=== PATIENT | female | born 1995 | race Caucasian/White ===

== ENCOUNTER 2023-09-20 10:24 | Outpatient (RCR) | payer BC, SELFPAY ==
[2023-07-03 11:47] VITALS: BP 121/68; PULSE 85
[2023-08-02 11:16] VITALS: BP 119/70; PULSE 86
[2023-08-09 12:05] VITALS: BP 126/79; PULSE 77
[2023-08-16 11:28] VITALS: BP 131/81; PULSE 70
[2023-08-23 12:12] VITALS: BP 123/81; PULSE 83
[2023-08-30 12:55] VITALS: BP 122/68; PULSE 75
[2023-09-06 11:03] VITALS: BP 131/57; PULSE 60
[2023-09-13 11:20] VITALS: BP 111/83; PULSE 86
[2023-09-20 11:02] VITALS: BP 132/74; PULSE 69
== END 2023-10-01 23:59 | disposition home or self-care (01) ==
LOC: ANHOBOP 10:24
PROVIDERS: Visit Provider Obstetrics & Gynecology
DX: O36.8130 Decreased fetal movements, third trimester, not applicable or unspecified (principal); Z3A.28 28 weeks gestation of pregnancy; Z3A.32 32 weeks gestation of pregnancy; Z3A.33 33 weeks gestation of pregnancy; Z3A.34 34 weeks gestation of pregnancy; Z3A.36 36 weeks gestation of pregnancy; Z3A.37 37 weeks gestation of pregnancy; Z3A.38 38 weeks gestation of pregnancy; Z3A.39 39 weeks gestation of pregnancy
CPT/HCPCS: 59025; J2250; J3010

== ENCOUNTER 2023-09-25 16:41 | Inpatient (IN) | payer BC, SELFPAY ==
[2023-09-25] VITALS (16 sets, daily range): BP systolic 120–146; BP diastolic 68–102; PULSE 66–80; TEMP 36.2–36.3; BMI 46.3
[2023-09-25 17:23] LABS: Basophils Percent Auto 0.4 % (0.2-1.2); Eosinophils Absolute Auto 0.1 K/mm3 (0-0.3); Eosinophils Percent Auto 0.7 % (0-4.4); Hematocrit 36.8 % (37.0-47.0); Hemoglobin 12.2 g/dL (12.0-15.0); Immature Granulocyte Absolute 0.12 K/mm3 (0.00-0.031); Immature Granulocyte Percent A 1.1 % (0-0.5); Lymphocytes Absolute Auto 2.12 K/mm3 (0.9-3.2); Lymphocytes Percent Auto 20.3 % (18.3-44.2); Mean Corpuscular HGB Conc 33.2 g/dl (32-36); Mean Corpuscular Hemoglobin 29.8 pg (26-34); Mean Corpuscular Volume 89.8 fl (80-100); Mean Platelet Volume 10.3 fl (7.4-10.4); Monocytes Absolute Auto 0.7 K/mm3 (0.1-0.6); Monocytes Percent Auto 7.1 % (2.6-8.5); Neutrophils Absolute Auto 7.4 K/mm3 (1.3-6.7); Neutrophils Percent Auto 70.4 % (45.5-73.1); Platelet Count Result 275 k/mm3 (150-375); Red Cell Distribution Width 13.6 % (11.5-14.5); White Blood Count 10.5 K/mm3 (4.5-10.0)
[2023-09-25] MEDS: DINOPROSTONE 10 MG VAG INSERT VAGINAL (17:25)
--- NOTE | 2023-09-25 17:47 | LDADM ---
This patient, Barbara Nguyen, was admitted to Labor/Delivery/Recovery 108 on 09/25/23 at 16:41. Plans for labor, pain management and were discussed with patient. Patient/family oriented to hospital policies and general routines including ID bracelet, bed and alarms, visiting hours, pain management, procedures, bathroom and other care routines, personal items, smoking policy, room service/diet and guest tray routines, infant security routines, and visiting hours. Patient/Family are encouraged to report perceived risks to care and to ask questions if they do not understand what they are told or what they should do. See OBIX for further documentation.
[2023-09-26] VITALS (258 sets, daily range): BP systolic 90–165; BP diastolic 47–118; PULSE 53–137; TEMP 35.9–37; O2SAT 78–100
--- NOTE | 2023-09-26 07:15 | WPDHPUPDATE1 ---
History and Physical Update Update Date/Time: 09/26/23 07:15 28 yo G1 who presents at 40w1d who presents or IOL. History and Physical has been reviewed, including an updated exam of the patient. There are NO changes in the patient's condition. Risks, benefits, and alternatives have been discussed and questions answered. Patient agrees to proceed with procedure. admit to L&D routine admission orders GBS neg plan for Cervidil IOL continuous EFM
[2023-09-26] MEDS: LACTATED RINGERS 1,000 ML 125 ML IV CONT ×3 (07:26→16:11)
[2023-09-26] MEDS: OXYTOCIN 30 UNITS/NS 500 ML 30 UNITS/500 ML BAG IV CONT (07:27)
--- NOTE | 2023-09-26 13:16 | WPDANESEPPF ---
Anes - Initial Pre Proc Eval Procedure: Labor Epidural Date/Time: 09/26/23 13:16 Surgeon: Mickey Mcelroy MD Pre Op Diagnosis: Labor pain Pre Op Diagnosis: Induction of Labor Patient Data Age: 28 Gender: F Height: 1.6 m Weight: 118.8 kg Last Vital Signs Temp 36.4 C 09/26/23 12:30 Pulse 74 09/26/23 13:01 BP 141/87 H 09/26/23 13:01 O2 Del Method Room Air 09/25/23 17:45 Allergies Allergy/AdvReac Type Severity Reaction Status Date / Time Sulfa (Sulfonamide Allergy Mild Rash Verified 09/20/23 09:10 Antibiotics) sumatriptan Allergy Mild Swelling Verified 09/20/23 09:10 Home Medications Medication Instructions Recorded Confirmed Type vitamins-iron fumarate 65 1 tablet PO DAILY 03/15/23 09/25/23 History mg iron-folic acid 1 mg tablet aspirin 81 mg tablet,delayed 81 mg PO DAILY 08/16/23 09/25/23 History release (Adult Low Dose Aspirin) Laboratory Tests 09/25/23 09/25/23 17:11 17:12 WBC 10.5 H K/mm3 (4.5-10.0) RBC 4.10 L M/mm3 (4.2-5.4) Hgb 12.2 g/dL (12.0-15.0) Hct 36.8 L % (37.0-47.0) MCV 89.8 fl (80-100) MCH 29.8 pg (26-34) MCHC 33.2 g/dl (32-36) RDW 13.6 % (11.5-14.5) Plt Count 275 k/mm3 (150-375) MPV 10.3 fl (7.4-10.4) Immature Gran % (Auto) 1.1 H % (0-0.5) Neut % (Auto) 70.4 % (45.5-73.1) Lymph % (Auto) 20.3 % (18.3-44.2) Harris % (Auto) 7.1 % (2.6-8.5) Eos % (Auto) 0.7 % (0-4.4) Baso % (Auto) 0.4 % (0.2-1.2) Lymph # (Auto) 2.12 K/mm3 (0.9-3.2) Harris # (Auto) 0.7 H K/mm3 (0.1-0.6) Eos # (Auto) 0.1 K/mm3 (0-0.3) Baso # (Auto) 0.0 K/mm3 (0.0-0.1) Abs Immat Gran (auto) 0.12 H K/mm3 (0.00-0.031) Absolute Neuts (auto) 7.4 H K/mm3 (1.3-6.7) Absolute Nucleated RBC 0.0 K/mm3 (0.0-0.012) Nucleated RBC % 0.0 % (0.0-0.2) RPR Pending Blood Type O Positive Antibody Screen Negative : gestational age (MELY 09/25/23) Patient hx anesthesia problems: none Family hx anesthesia problems: none Results Review: All pre-operative results and documents have been reviewed as part of the pre-operative evaluation. [facility] Past Medical History Medical History Suppression of menstruation Surgical History Surgical History H/O eye surgery History of tonsillectomy Family History Family History Mother Cerebrovascular accident Hypertension Bipolar disorder Father Cerebrovascular accident Hypertension Other Breast cancer paternal aunt Lung cancer paternal aunt Social History Social History Smoking packs per day: 0.5 Smoking cigarettes per day: 10.0 Years smoked: 2 Smoking pack-years: 1.00 Smoking status: Former smoker Tobacco type: cigarettes Second hand tobacco smoke exposure: No Alcohol intake: former Alcohol use details: 4 per month Substance use: never Substance use type: marijuana Last use: 01/28/2023 Do You Feel Safe in your Home?: Yes Lack of Transportation: No Lack of Food: Never True Current Housing: I Have Housing Concerned About Future Housing: No Difficulty Paying Gas/Electric Bills: No Difficulty Paying for Meds: No Currently Unemployed: No Education: High School Diploma/GED Difficulty w/ Childcare or Family Care: No Living arrangements: other Additional living arrangements comments: Occupation/Education: occupation Additional occupation/education comments: demolitionist Gender identity (if verbalized by the patient): Female Sexual Orientation (if Verbalized by the Patient): Bisexual Spiritual care co
--- NOTE | 2023-09-26 16:31 | PM.OBPNLAB ---
Pain Control Date/time seen: 09/26/23 16:31 Pain control: tolerating well and epidural Pelvic Exam Dilation (cm): 6 Effacement (%): 80 station: -3 Amniotic membrane status: Intact Contractions Monitor mode: External Contraction pattern: Regular Status status: Category l Assessment and Plan Assessment: induction ongoing Comments: AROM for clear fluid. IUPC placed. Continue to monitor
[2023-09-27] VITALS (96 sets, daily range): BP systolic 99–144; BP diastolic 64–92; PULSE 82–177; RESP 18–27; TEMP 36.4–38.1; O2SAT 84–100
[2023-09-27] MEDS: LACTATED RINGERS 1,000 ML 125 ML IV CONT (00:04)
[2023-09-27] MEDS: ceFAZolin 2 GM/D5W 50 ML 2 GM/50 ML BAG IVPB (02:56)
--- NOTE | 2023-09-27 03:23 | WPDANESEPPF ---
Anes - Initial Pre Proc Eval Procedure: Operation Date: 09/27/23 03:15 Proposed Procedures p Section(Not Applicable) - Mickey Mcelroy MD Date/Time: 09/27/23 03:23 Surgeon: Mickey Mcelroy MD Pre Op Diagnosis: Induction of Labor Patient Data Age: 28 Gender: F Height: 1.6 m Weight: 118.8 kg Last Vital Signs Temp 38.1 C H 09/27/23 02:26 Pulse 98 09/27/23 03:16 BP 118/64 09/27/23 03:16 Pulse Ox 100 09/27/23 03:18 O2 Del Method Room Air 09/25/23 17:45 Allergies Allergy/AdvReac Type Severity Reaction Status Date / Time Sulfa (Sulfonamide Allergy Mild Rash Verified 09/20/23 09:10 Antibiotics) sumatriptan Allergy Mild Swelling Verified 09/20/23 09:10 Home Medications Medication Instructions Recorded Confirmed Type vitamins-iron fumarate 65 1 tablet PO DAILY 03/15/23 09/25/23 History mg iron-folic acid 1 mg tablet aspirin 81 mg tablet,delayed 81 mg PO DAILY 08/16/23 09/25/23 History release (Adult Low Dose Aspirin) : gestational age (MELY 09/25/23) Patient hx anesthesia problems: none Family hx anesthesia problems: none Results Review: All pre-operative results and documents have been reviewed as part of the pre-operative evaluation. [facility] Past Medical History Medical History Suppression of menstruation Surgical History Surgical History H/O eye surgery History of tonsillectomy Family History Family History Mother Cerebrovascular accident Hypertension Bipolar disorder Father Cerebrovascular accident Hypertension Other Breast cancer paternal aunt Lung cancer paternal aunt Social History Social History Smoking packs per day: 0.5 Smoking cigarettes per day: 10.0 Years smoked: 2 Smoking pack-years: 1.00 Smoking status: Former smoker Tobacco type: cigarettes Second hand tobacco smoke exposure: No Alcohol intake: former Alcohol use details: 4 per month Substance use: never Substance use type: marijuana Last use: 01/28/2023 Do You Feel Safe in your Home?: Yes Lack of Transportation: No Lack of Food: Never True Current Housing: I Have Housing Concerned About Future Housing: No Difficulty Paying Gas/Electric Bills: No Difficulty Paying for Meds: No Currently Unemployed: No Education: High School Diploma/GED Difficulty w/ Childcare or Family Care: No Living arrangements: other Additional living arrangements comments: Occupation/Education: occupation Additional occupation/education comments: cafe server Gender identity (if verbalized by the patient): Female Sexual Orientation (if Verbalized by the Patient): Bisexual Spiritual care concerns: No Anes - Eval Final PreProcedure Day of Procedure 09/27/23 03:23 Patient weight: morbidly obese Heart: regular rate and rhythm Lungs: clear to auscultation and normal air movement Airway: Mallampati scale class II Neurological: alert and oriented Last oral intake: >/= 8 hours ASA classification: III Emergent: no Anesthetic plan: proceed Anesthesia type and monitoring: regional spinal and standard monitoring Results Review: All pre-operative results and documents have been reviewed as part of the pre-operative evaluation. Informed Consent: The patient's anesthetic plan and its attendant risks and benefits were discussed with the patient/family/POA. Questions were solicited and answers provided to the satisfaction of the patient/family/POA.
--- NOTE | 2023-09-27 03:23 | PM.IMHP ---
H&P: HPI History of Present Illness Date/Time: 09/27/23 03:23 Chief Complaint: intrauterine at term arrest of second stage suspected macrosomia Narrative: 28 yo G1 at 40w1d who presents for IOL. Pt was complicated by obesity and suspected macrosomia. Review of Systems Cardiovascular: Cardiovascular: Denies chest pain, Denies leg edema, Denies palpitations, Denies dyspnea and Denies dyspnea on exertion Respiratory: Respiratory: Denies cough, Denies dyspnea and Denies dyspnea on exertion Gastrointestinal: Gastrointestinal: Denies abdominal pain, Denies constipation, Denies diarrhea, Denies nausea and Denies vomiting Genitourinary: Genitourinary: Denies hematuria, Denies urinary frequency, Denies dysuria, Denies pelvic pain, Denies urinary incontinence and Denies vaginal discharge Neurologic: Reports system reviewed and no additional complaints, except as documented Psychiatric: Psychiatric: Reports no additional psychiatric complaints Endocrine: Endocrine: Denies palpitations PMFSH Past Medical History Medical History Suppression of menstruation Surgical History Surgical History H/O eye surgery History of tonsillectomy Family History Family History Mother Cerebrovascular accident Hypertension Bipolar disorder Father Cerebrovascular accident Hypertension Other Breast cancer paternal aunt Lung cancer paternal aunt Social History Social History Smoking packs per day: 0.5 Smoking cigarettes per day: 10.0 Years smoked: 2 Smoking pack-years: 1.00 Smoking status: Former smoker Tobacco type: cigarettes Second hand tobacco smoke exposure: No Alcohol intake: former Alcohol use details: 4 per month Substance use: never Substance use type: marijuana Last use: 01/28/2023 Do You Feel Safe in your Home?: Yes Lack of Transportation: No Lack of Food: Never True Current Housing: I Have Housing Concerned About Future Housing: No Difficulty Paying Gas/Electric Bills: No Difficulty Paying for Meds: No Currently Unemployed: No Education: High School Diploma/GED Difficulty w/ Childcare or Family Care: No Living arrangements: other Additional living arrangements comments: Occupation/Education: occupation 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 Gender identity (if verbalized by the patient): Female Sexual Orientation (if Verbalized by the Patient): Bisexual Spiritual care concerns: No Meds Home Medications and Allergies Home Medications Medication Instructions Recorded Confirmed Type vitamins-iron fumarate 65 1 tablet PO DAILY 03/15/23 09/25/23 History mg iron-folic acid 1 mg tablet aspirin 81 mg tablet,delayed 81 mg PO DAILY 08/16/23 09/25/23 History release (Adult Low Dose Aspirin) Allergies Allergy/AdvReac Type Severity Reaction Status Date / Time Sulfa (Sulfonamide Allergy Mild Rash Verified 09/20/23 09:10 Antibiotics) sumatriptan Allergy Mild Swelling Verified 09/20/23 09:10 Vital Signs Vital Signs - 24 hr 09/26/23 04:01 09/26/23 05:01 09/26/23 05:16 Temperature 97.4 F L Pulse Rate 74 76 Blood Pressure 136/83 132/76 Pulse Oximetry 09/26/23 07:31 09/26/23 07:33 09/26/23 06:27 Temperature 97.5 F L Pulse Rate 85 82 Blood Pressure 149/88 H 139/93 H Pulse Oximetry 09/26/23 07:46 09/26/23 08:01 09/26/23 08:03 Temperature Pulse Rate 73 81 79 Blood Pressure 158/91 H 138/94 H 150/95 H Pulse Oximetry 09/26/23 08:00 09/26/23 08:16 09/26/23 08:21 Temperature 96.7 F L Pulse Rate 69 72 Blood Pressure 157/94 H 145/82 H Pulse Oximetry 09/26/23 08:31 09/26/23 08:33 09/26/23 08:4
[2023-09-27] MEDS: AZITHROMYCIN 500 MG/NS 250 ML 500 MG/250 ML BAG 250 MG IVPB (03:29)
--- NOTE | 2023-09-27 04:33 | W.PM.OBCSD ---
OB - Delivery Note Procedure Delivery date: 09/27/23 Pre-op diagnosis: Arrest of Decent Post-op Diagnosis: Same Induction method: Per Cervidil Protocol Delivery augmentation: Rupture of Membranes and Pitocin Delivery monitor: External FHT and External Uterine Prior to decision for section, ACOG/SMFM labor guidelines were considered and discussed with the patient and staff. Decision made to proceed with the section.: Yes Procedure Performed: Primary Primary branch: low cervical, transverse Surgeon: Mickey Mcelroy MD Anesthesia type: Epidural Description of Procedure/Findings: The patient was taken to the operating room. Her epidural was tested and found to be adequate at a t-10 level. The patient was placed in a supine position with a slight left lateral tilt. A morris catheter was placed with return of clear urine. A Bovie grounding pad was placed. Surgical prep was performed and surgical drapes were placed. A surgical time out was performed. A Pfannenstiel skin incision was then made with the scalpel and carried through to the underlying layer of fascia. The fascia was then incised in the midline and the incision was extended laterally with the Morelos scissors. The superior aspect of the fascia was then grasped with the Elvis clamps, elevated, and the underlying rectus muscles dissected off bluntly and sharply. Attention was then turned to the inferior aspect of this incision which, in a similar fashion, was grasped, tented up with the Elvis clamps, and the rectus muscles dissected off both bluntly and sharply. The rectus muscles were then in the midline. The peritoneum was identified and entered bluntly. The peritoneal incision was then extended superiorly and inferiorly with good visualization of the bladder. An kaylan ring retractor was placed for better visualization. The uterus was inspected for rotation. A low-transverse uterine incision was made sharply with the scalpel and entry was made into the uterine cavity. An amniotomy was made and copious amounts of clear fluid were noted on return. The uterine incision was extended laterally bluntly. The fetus was delivered atraumatically. The nose and mouth were suctioned with a bulb syringe. The umbilical cord was clamped twice and cut. The infant was handed off to the waiting staff. At the time of the delivery, the had good color, tone and grimace. The infant cried with minimal stimulation. A second segment of umbilical cord was clamped and cut for cord blood gasses. Cord blood was collected for determination of the blood type and for direct Connell. The placenta was delivered spontaneously without difficulty. The placenta appeared grossly normal and complete. The uterus was exteriorized and cleared of all clots and debris. The uterine incision was repaired using 0-monocryl suture in a running fashion. A second layer of 0 Monocryl suture was used in an imbricating fashion to obtain excellent hemostasis and uterine strength. The uterine closure was inspected for hemostasis. The posterior aspect of the uterus and the broad ligaments were inspected and the posterior cul-de-sac cleared of fluid and blood clots. The uterine closure was again inspected and found to be hemostatic. The uterus was returned to the abdominal cavity. The ring retractor was removed. The pericolic gutters were inspected and were cleared of all blood clots and debris. The uterine closure was then re inspected to ensure hemostasis as were all subfascial tissues. The peritoneum was closed using 3-0 vicryl in a running fashion. The fascia was reapproximated with 0-vicryl in a running fashion. The subcutaneous tissue was irrigated and hemostasis achieved with electrocautery. It was reapproximated with 3-0 vicryl in a running fashion. The skin was closed with 4-0 vicryl in a subcuticular fashion. A sterile vac dressing was applied to the wound. The patient tolerated the procedure
[2023-09-27] MEDS: OXYTOCIN 30 UNITS/NS 500 ML 30 UNITS/500 ML BAG 125 UNITS IV CONT (05:37)
[2023-09-27] MEDS: MORPHINE SULFATE INJ (*CRX) 10 MG/ML AMP 2 MG IV PUSH (05:41)
[2023-09-27] MEDS: DEXTROSE 5%/0.45% SOD CHL 1,000 ML 125 ML IV CONT (07:53)
[2023-09-27] MEDS: MULTIVIT/MIN/PREN/FOL AC/IRON TABLET 1 TAB PO (10:30)
[2023-09-27] MEDS: KETOROLAC 30 MG/ML VIAL (*BKC) IV PUSH (10:30)
[2023-09-27] MEDS: DOCUSATE SODIUM 100 MG CAPSULE PO ×2 (10:30→16:48)
[2023-09-27 12:20] LABS: Rapid Plasma Reagin Non-Reactive (NonReactive)
--- NOTE | 2023-09-27 17:26 | OBPPTRN ---
1215-Patient transferred to post room #281 via bed. Support person present. Oriented to unit, room, information board, rooming in, admission packet and security measures. Patient verbalizes understanding.
[2023-09-27] MEDS: HYDROcodone/acetaminophen (*CRX) 10-325 MG TABLET 1 TAB PO (20:00)
[2023-09-27] MEDS: IBUPROFEN 600 MG TABLET PO (20:13)
[2023-09-28] MEDS: HYDROcodone/acetaminophen (*CRX) 10-325 MG TABLET 1 TAB PO ×5 (03:20→20:12)
[2023-09-28] MEDS: SIMETHICONE 80 MG TAB.CHEW PO ×2 (05:00→09:12)
[2023-09-28 05:18] LABS: Basophils Absolute Auto 0.1 K/mm3 (0.0-0.1); Basophils Percent Auto 0.4 % (0.2-1.2); Eosinophils Absolute Auto 0.1 K/mm3 (0-0.3); Eosinophils Percent Auto 0.7 % (0-4.4); Hematocrit 30.1 % (37.0-47.0); Hemoglobin 10.1 g/dL (12.0-15.0); Immature Granulocyte Absolute 0.13 K/mm3 (0.00-0.031); Immature Granulocyte Percent A 0.9 % (0-0.5); Lymphocytes Absolute Auto 2.25 K/mm3 (0.9-3.2); Lymphocytes Percent Auto 15.9 % (18.3-44.2); Mean Corpuscular HGB Conc 33.6 g/dl (32-36); Mean Corpuscular Hemoglobin 30.5 pg (26-34); Mean Corpuscular Volume 90.9 fl (80-100); Mean Platelet Volume 10.9 fl (7.4-10.4); Monocytes Absolute Auto 0.9 K/mm3 (0.1-0.6); Monocytes Percent Auto 6.1 % (2.6-8.5); Neutrophils Absolute Auto 10.8 K/mm3 (1.3-6.7); Platelet Count Result 223 k/mm3 (150-375); Red Blood Count 3.31 M/mm3 (4.2-5.4); Red Cell Distribution Width 14.1 % (11.5-14.5); White Blood Count 14.2 K/mm3 (4.5-10.0)
[2023-09-28 07:30] VITALS: BP 136/78; PULSE 88; RESP 16; TEMP 37.3; O2SAT 100
[2023-09-28 08:00] VITALS: PULSE 88; RESP 16; O2SAT 100
--- NOTE | 2023-09-28 08:01 | PM.OBPNVD ---
OB - PN: Subj Subjective Date/time seen: 09/28/23 08:01 Interval history: Patient doing well this AM. She is ambulating out of bed. She is tolerating PO. She reports adequate pain control. Her bleeding is normal and she reports normal lochia. She denies fever, chills, N/V. She has not yet passed flatus. Patient comments: no complaints and pain well controlled; no flatus present OB - PN: Obj Data Labs 09/28/23 03:58 Labs: Laboratory Results - last 24 hr 09/25/23 09/28/23 17:11 03:58 WBC 14.2 H RBC 3.31 L Hgb 10.1 L Hct 30.1 L MCV 90.9 MCH 30.5 MCHC 33.6 RDW 14.1 Plt Count 223 MPV 10.9 H Immature Gran % (Auto) 0.9 H Neut % (Auto) 76.0 H Lymph % (Auto) 15.9 L [place] % (Auto) 6.1 Eos % (Auto) 0.7 Baso % (Auto) 0.4 Lymph # (Auto) 2.25 [place] # (Auto) 0.9 H Eos # (Auto) 0.1 Baso # (Auto) 0.1 Abs Immat Gran (auto) 0.13 H Absolute Neuts (auto) 10.8 H Absolute Nucleated RBC 0.0 Nucleated RBC % 0.0 RPR Non-reactive OB - PN A/P Plan day: 1 Plan: routine care Comments: patient doing well this AM Pt ambulating and voiding without concern tolerating diet H/H 10.10/24 continue routine PP care plan for infant circumcision today. risks, benefits, alternatives discussed. Time Spent With Patient Time: Total time spent is greater than 50% in coordination of care (as documented) at patient's floor/unit and/or counseling patient: Time with patient: less than 15 minutes Review of Systems Constitutional: Constitutional: Reports no additional constitutional complaints Cardiovascular: Cardiovascular: Reports no additional cardiovascular complaints Respiratory: Respiratory: Reports no additional respiratory complaints Gastrointestinal: Gastrointestinal: Reports no additional gastrointestinal complaints Genitourinary: Genitourinary: Reports no additional female genitourinary complaints Exam Const: General: comfortable and no acute distress Resp: Effort & Inspection: normal respiratory effort Auscultation: clear to auscultation bilaterally Cardio: Rate: regular rate GI: GI Palp: Yes Soft to palpation and Yes Tenderness to palpation present (GI) (appropriately tender around incision ) Auscultation: normal bowel sounds Other: fundus firm and below umbilicus Incision C/D/I Urinary Catheter: Urinary Catheter: urine clear Psych: Appearance: grossly normal Mental Status: mental status grossly normal Affect: normal affect
[2023-09-28] MEDS: DOCUSATE SODIUM 100 MG CAPSULE PO ×2 (09:12→16:22)
[2023-09-28] MEDS: MULTIVIT/MIN/PREN/FOL AC/IRON TABLET 1 TAB PO (09:12)
[2023-09-28] MEDS: IBUPROFEN 600 MG TABLET PO ×3 (09:13→23:37)
--- NOTE | 2023-09-28 11:06 | WPDANLDNPN2 ---
Anes-Prog Note L&D-Neuraxial Date/Time: 09/28/23 11:06 Neuraxial medications: epidural PF morphine Opiod-related complaints: none Patient feedback: Patient satisfied with post-operative pain management.
--- NOTE | 2023-09-28 11:07 | WPDANLDPN2 ---
Anes-Prog Note L&D Date/Time: 09/28/23 11:07 Comfortable throughout: section Neuraxial method: epidural Epidural/Spinal procedure site: clean & non-tender Neuro status: Neuro function grossly intact. Cardiovascular status: normal Respiratory status: normal Airway patency: baseline Mental status: baseline Post-Op hydration status: normal Vital Signs: Last Vital Signs Temp 37.3 C 09/28/23 07:30 Pulse 88 09/28/23 08:00 Resp 16 09/28/23 08:00 BP 136/78 09/28/23 07:30 Pulse Ox 100 09/28/23 08:00 O2 Del Method Room Air 09/28/23 08:00 Pain score (VAS): 3/10 I/O: Intake & Output 09/27/23 09/28/23 09/28/23 23:59 07:59 15:59 Output Total 1600 300 Balance -1600 -300 Post-procedural complaints: none Patient feedback: Patient satisfied with anesthetic care.
[2023-09-28 20:05] VITALS: BP 132/88; PULSE 79; RESP 18; TEMP 36.7
[2023-09-28] MEDS: HYDROcodone/acetaminophen (*CRX) 5-325 MG TABLET 1 TAB PO (23:36)
[2023-09-29] MEDS: HYDROcodone/acetaminophen (*CRX) 10-325 MG TABLET 1 TAB PO ×2 (02:36→09:00)
--- NOTE | 2023-09-29 05:10 | PC.NURSE ---
Patient instructed to view the discharge video Mother & Baby Care, The First Two Weeks online. Patient was given the opportunity and encouraged to ask questions. Patient verbalized understanding of information shared and has been given the mother/baby guide for home reference.
[2023-09-29] MEDS: HYDROcodone/acetaminophen (*CRX) 5-325 MG TABLET 1 TAB PO (05:53)
[2023-09-29] MEDS: IBUPROFEN 600 MG TABLET PO (05:55)
[2023-09-29] MEDS: SIMETHICONE 80 MG TAB.CHEW PO ×2 (05:55→09:15)
[2023-09-29 08:10] VITALS: BP 130/83; PULSE 76; RESP 16; TEMP 36.6; O2SAT 100
[2023-09-29] MEDS: MULTIVIT/MIN/PREN/FOL AC/IRON TABLET 1 TAB PO (09:15)
[2023-09-29] MEDS: DOCUSATE SODIUM 100 MG CAPSULE PO (09:15)
--- NOTE | 2023-09-29 09:56 | PM.OBDSVD ---
DS: Admitting Diagnosis Discharge Date 09/29/2023 Admitting Diagnosis DS: Discharge Diagnosis Discharge Diagnosis (1) , delivered: Code(s): O80 - Encounter for full-term uncomplicated delivery Status: Acute OB - DS: Summary OB Procedures : None OB Procedures Intrapartum: OB Procedures: : None Peripartum Data Procedures: Procedures Operation Date: 09/27/23 03:15 Actual Procedure Side Surgeon p Section Mickey Mcelroy MD Time Spent with Patient Time attestation: Total time spent providing and/or coordinating discharge services: Discharge Plan Discharge Discharging Clinician: Mickey Mcelroy Patient Disposition: Home, Self-Care Activity: as tolerated and pelvic rest Diet: regular Patient Instructions: Antibiotic Form, (DC) Stand Alone Forms: General Discharge Information Follow-up/Referrals: Mickey Mcelroy MD [Physician] - 1 Week (dressing removal) Discharge Medications: New oxycodone-acetaminophen 5-325 mg tablet 1 tablet PO Q6H PRN (Reason: pain) Qty: 28 0RF ibuprofen 600 mg tablet 600 mg PO Q6H PRN (Reason: pain) Qty: 30 0RF Continued vit-iron fum-folic ac 65 mg iron- 1 mg tablet 1 tablet PO DAILY Discontinued aspirin [Adult Low Dose Aspirin] 81 mg tablet,delayed release (DR/EC) 81 mg PO DAILY Date of admission: 09/25/23 16:41 Primary Care Provider: PHYSICIAN,APPLICATION SPECIALIST Admitting Provider: Mickey Mcelroy Attending physician on admission: Mickey Mcelroy Condition: Stable
--- NOTE | 2023-09-29 13:34 | PC.NURSE ---
[id number] Introductions were made and Mother led the conversation with her experience so far, plan to feed her infant, and her ability to feed her infant. Infant is in the bassinet quiet, alert awake and it was suggested to practice [id number] and latching during these times. Offer of assistance was given and mother did not voice or show body language to being receptive to assistance at this time. Mother states she is confident to call for assistance. Reinforced understanding of milk production, transition of milk, signs of adequate intake, transition of stool, prevention/relief of engorgement, plugged ducts, mastitis, responsive watching for feeding cues, the different methods of stimulating to breastfeed 1-3 hours after the start of the last feeding, community resources, and when to call a provider using the resource of the mom and baby guide. Mother voiced understanding of the education shared. Reported to the Primary RN.
[2023-09-30 16:16] VITALS: BP 138/79; PULSE 75; RESP 18; TEMP 36.3; O2SAT 99
== END 2023-09-29 12:20 | disposition home or self-care (01) | DRG 787 ==
LOC: ANHLDR 09-26 13:17 → ANHOB2 09-28 09:51 → ANHLDR 10-02 07:20 → ANHOB2 10-02 07:20
PROVIDERS: Admitting Provider Student in an Organized Health Care Education/Training Program; Visit Provider Obstetrics & Gynecology
PROC: 10D00Z1 Extraction of Products of Conception, Low, Open Approach (ICD-10-PCS; CPT 59514; principal; 2023-09-27 03:15)
DX: O62.1 Secondary uterine inertia (principal); O75.2 Pyrexia during labor, not elsewhere classified; Z3A.40 40 weeks gestation of pregnancy; Z37.0 Single live birth; O36.63X0 Maternal care for excessive fetal growth, third trimester, not applicable or unspecified; O99.214 Obesity complicating childbirth; O69.81X0 Labor and delivery complicated by cord around neck, without compression, not applicable or unspecified; Z87.891 Personal history of nicotine dependence
CPT/HCPCS: 36415; 85025; 86592; 86850; 86900; 86901; A9270; J0456; J0690; J1885; J2270; J2274; J2371; J2405; J2590; J2704; J2795; J7120